=== PATIENT | female | born 1990 ===

== ENCOUNTER 2020-12-20 13:01 | Emergency (ER) | payer SELFPAY ==
[~2020-12-20] VITALS: Ht 165.1 cm; Wt 61.2 kg
[2020-12-20 13:14] VITALS: BP 107/73
--- NOTE | 2020-12-20 13:18 | NUR ---
BIB Family "cough/body rashes" . ABLE TO COMMUNICATE NEEDS IN [facility].AOX4, NO SOB NOTED, NO C/O PAIN AT THIS TIME, NO S/O ANY ACUTE DISTRESS NOTED. MAKE COMFORTABLE IN BED. WILL CONTINUE TO MONITOR
[2020-12-20] MEDS ORDERED: DIPH25CA83 PO (13:47)
[2020-12-20] MEDS ORDERED: HYDR453.3 TP (13:47)
[2020-12-20] MEDS ORDERED: PRED20TA PO (13:47)
[2020-12-20 13:58] LABS: BASOPHILS % (AUTO) 0.6 % (0.0-2.0); EOSINOPHILS % (AUTO) 2.9 % (0.0-6.0); HEMATOCRIT 38 % (33-45); HEMOGLOBIN 12.7 g/dL (11.5-14.8); LYMPHOCYTES # (AUTO) 1.2 K/uL (0.8-4.8); LYMPHOCYTES % (AUTO) 22.3 % (20.0-44.0); MEAN CORPUSCULAR HGB CONC 34 g/dl (31.0-36.0); MEAN CORPUSCULAR VOLUME 90 fL (82-100); MONOCYTES # (AUTO) 0.4 K/uL (0.1-1.30); MONOCYTES % (AUTO) 6.6 % (2.0-12.0); NEUTROPHILS # (AUTO) 3.7 K/uL (1.8-8.9); NEUTROPHILS % (AUTO) 67.6 % (43.0-81.0); PLATELET COUNT (AUTO) 189 K/uL (150-450); RED BLOOD CELL COUNT(AUTO) 4.17 MIL/uL (4.0-5.2); WHITE BLOOD COUNT (AUTO) 5.5 K/uL (4.3-11.0)
--- NOTE | 2020-12-20 14:10 | NUR ---
Patient discharged to home in stable condition. Written and verbal after care instructions given. Patient verbalizes understanding of instruction.
== END 2020-12-20 14:11 | disposition home or self-care (01) ==
LOC: ER 13:17
DX: L30.9 Dermatitis, unspecified (principal)
CPT/HCPCS: 36415; 85025-TC